=== PATIENT | male | born 1930 | race Caucasian/White ===

== ENCOUNTER → 2017-05-15 | Outpatient (CLI) | payer MEDICARE ==
--- NOTE | 2017-05-15 12:42 | PCVCIMAG ---
APPROVED REPORT Study performed: 05/15/2017 10:57:09 EXAM: Comprehensive 2D, Doppler, and color-flow Echocardiogram Patient Location: Echo lab Status: routine Other Information Study Quality: Good Indications Atrial Fibrillation Near syncope. Confusion 2D Dimensions IVSd: 8.78 (7-11mm)LVOT Diam: 20.54 (18-24mm) LVDd: 47.10 mm PWd: 10.05 (7-11mm)Ascending Ao: 33.86 (22-36mm) LVDs: 27.63 (25-40mm) Left Atrium: 32.58 (27-40mm) Aortic Root: 31.07 mm LV Single Plane 4CH: 51.01 % LV Single Plane 2CH: 56.36 %Gipson's LVEF: 53.69 % Biplane EF: 52.7 % Volumes Left Atrial Volume (Systole) Single Plane 4CH: 31.33 mLSingle Plane 2CH: 27.45 mL LA ESV Index: 16.00 mL/m2 Aortic Valve AoV Peak Yash.: 1.06 m/s AO Peak Gr.: 4.51 mmHgLVOT Max P.17 mmHg LVOT Max V: 0.89 m/s YOSI Vmax: 2.78 cm2 Mitral Valve E/A Ratio: 0.8 MV Decel. Time: 301.43 ms MV E Max Yash.: 0.55 m/s MV A Yash.: 0.65 m/s IVRT: 148.79 ms TDI E/Medial E': 0.08 E': 6.00Medial E' Yash.: 7.00 m/s Pulmonary Valve PV Peak Gr.: 1.33 mmHg Pulmonary Vein P Vein S: 0.57 m/sP Vein A: 0.32 m/s P Vein D: 0.28 m/sP Vein A Dur.: 86.5 msec P Vein S/D Ratio: 2.04 Tricuspid Valve TR Peak Yash.: 2.09 m/s TR Peak Gr.: 17.48 mmHg Left Ventricle The left ventricle is normal size. There is normal LV segmental wall motion. There is normal left ventricular wall thickness. Left ventricular systolic function is normal. The left ventricular ejection fraction is within the normal range. LVEF is 50-55%. Grade I - abnormal relaxation pattern. Right Ventricle The right ventricle is normal size. The right ventricular systolic function is normal. Atria The left atrium size is normal. The right atrium size is normal. Aortic Valve The aortic valve is normal in structure. Mild aortic regurgitation. There is no aortic valvular stenosis. Mitral Valve The mitral valve is normal in structure. There is no mitral valve regurgitation noted. No evidence of mitral valve stenosis. Tricuspid Valve The tricuspid valve is normal in structure. Trace tricuspid regurgitation. Pulmonic Valve The pulmonary valve is normal in structure. There is no pulmonic valvular regurgitation. Great Vessels The aortic root is normal in size. IVC is normal in size and collapses with >50% inspiration Pericardium There is no pericardial effusion. <Conclusion> The left ventricle is normal size. Left ventricular systolic function is normal. The right ventricle is normal size. The left atrium size is normal. Mild aortic regurgitation. The mitral valve is normal in structure. Trace tricuspid regurgitation. There is no pericardial effusion.
--- NOTE | 2017-05-15 13:11 | PCVCIMAG ---
EXAM: BILATERAL CAROTID DUPLEX INDICATION: Transient Cerebral Ischemia FINDINGS: Doppler Measurements (centimeters per second): RIGHT: Peak CCA-74, Peak ECA-94, Diastolic ICA-20, Peak ICA-87, ICA/CCA Ratio-1.1. LEFT: Peak CCA-81, Peak ECA-67, Diastolic ICA-18, Peak ICA-63, ICA/CCA Ratio-0.8. RIGHT CAROTID: The carotid bulb has mild plaque. The proximal internal carotid artery shows <40% stenosis. The common carotid artery shows no significant stenosis. The external carotid artery shows no significant stenosis. LEFT CAROTID: The carotid bulb has minimal plaque. The proximal internal carotid artery shows no significant stenosis. The common carotid artery shows no significant stenosis. The external carotid artery shows no significant stenosis. Antegrade flow in both vertebral arteries. IMPRESSION: <40% stenosis of the right internal carotid artery with mild plaque. No significant stenosis of the left internal carotid artery with minimal plaque. LOC:[place] [id number]
== END | disposition home or self-care (01) ==
LOC: PCVCIMAG 10:16
PROVIDERS: ATTEND Internal Medicine Cardiovascular Disease
DX: I08.2 Rheumatic disorders of both aortic and tricuspid valves (principal); I65.23 Occlusion and stenosis of bilateral carotid arteries; I48.91 Unspecified atrial fibrillation; R41.0 Disorientation, unspecified; G45.9 Transient cerebral ischemic attack, unspecified
CPT/HCPCS: 93306; 93880